=== PATIENT | female | born 1990 ===

== ENCOUNTER → 2020-06-07 | Outpatient (CLI) | payer SELFPAY | LOC: M LABSMTC 10:21 | PROVIDERS: ATTEND Pediatrics | DX: Z20.822 Contact with and (suspected) exposure to COVID-19 (principal) ==

== ENCOUNTER → 2020-06-15 | Outpatient (CLI) | payer SELFPAY | LOC: M LABSMTC 09:46 | PROVIDERS: ATTEND Pediatrics | DX: Z20.822 Contact with and (suspected) exposure to COVID-19 (principal) ==